=== PATIENT | female | born 1975 | race Hispanic/Latino ===

== ENCOUNTER 2018-01-23 22:20 | Emergency (ER) | payer BC, MEDICAID, OTHER ==
[2018-01-23 22:21] VITALS: BMI 26.6
[2018-01-23 22:51] VITALS: O2SAT 100
--- NOTE | 2018-01-23 23:23 | ED PDOC ---
Arrival/HPI <Earle Stein - Last Filed: 01/24/18 00:58> - General Historian: Patient - History of Present Illness Time/Duration: < week Symptom Onset: Sudden Symptom Course: Worsening Quality: Aching, Pressure Severity Level: 3 Activities at Onset: Rest, Eating Context: Home <Karime Vann - Last Filed: 01/24/18 02:26> - General Chief Complaint: Abdominal Pain Time Seen by Provider: 01/23/18 23:12 - History of Present Illness Narrative History of Present Illness (Text): 01/23/18 23:18 Pt is a 42 yr old female with a history of anxiety, who present to the ED for fever and vomiting x 5 days. Pt states she started to feel sick after eating bad sour cream on Wednesday and has also been eating a lot of pre-made salads from [employer]. Pt says that she vomited 8 times on and Wednesday and has vomited little amounts since, reports 30 minutes before arrival. Pt has chest pain and shortness of breath associate but denies diarrhea or any other complaints. 01/23/18 23:23 (Karime Vann) Past Medical History - Provider Review Nursing Documentation Reviewed: Yes - Travel History Have you recently traveled outside [place] w/in the past 3 mons?: No - Infectious Disease Hx of Infectious Diseases: None - Cardiac Hx Cardiac Disorders: Yes Hx Hypertension: Yes - Psychiatric Hx Anxiety: Yes Hx Substance Use: No - Surgical History Hx Section: Yes - Anesthesia Hx Anesthesia: No <Karime Vann - Last Filed: 01/24/18 02:26> Family/Social History - Physician Review Nursing Documentation Reviewed: Yes Family/Social History: Unknown Family HX Smoking Status: Never Smoked Hx Alcohol Use: Yes Frequency of alcohol use: Socially Hx Substance Use: No <Karime Vann - Last Filed: 01/24/18 02:26> Allergies/Home Meds <Earle Stein - Last Filed: 01/24/18 00:58> <Karime Vann - Last Filed: 01/24/18 02:26> Allergies/Adverse Reactions: Allergies metoclopramide HCl [From Reglan] Allergy (Verified 03/28/16 23:57) RASH Review of Systems - Review of Systems Constitutional: Normal, Fatigue, Fevers Eyes: Normal ENT: Normal Respiratory: SOB. absent: Cough, Sputum Cardiovascular: Chest Pain Gastrointestinal: Normal, Abdominal Pain, Nausea, Vomiting, Appetite Changes. absent: Stool Changes, Hematochezia, Hematemesis Genitourinary Female: Normal Musculoskeletal: Normal Skin: Normal Neurological: Normal Endocrine: Normal Hemo/Lymphatic: Normal Psychiatric: Normal <Karime Vann - Last Filed: 01/24/18 02:26> Physical Exam Vital Signs Reviewed: Yes Temperature: Afebrile Blood Pressure: Normal Pulse: Regular Respiratory Rate: Normal Appearance: Positive for: Well-Appearing, Non-Toxic, Comfortable Pain Distress: Mild Mental Status: Positive for: Alert and Oriented X 3 - Systems Exam Head: Present: Atraumatic, Normocephalic Pupils: Present: PERRL Extroacular Muscles: Present: EOMI Conjunctiva: Present: Normal Mouth: Present: Moist Mucous Membranes Pharnyx: Present: Normal Neck: Present: Normal Range of Motion Respiratory/Chest: Present: Clear to Auscultation, Good Air Exchange. No: Respiratory Distress, Accessory Muscle Use Cardiovascular: Present: Regular Rate and Rhythm, Normal S1, S2. No: Murmurs Abdomen: Present: Normal Bowel Sounds. No: Tenderness, Distention, Peritoneal Signs, Rebound, Guarding, McBurney's Point Tender, Rovsing's Sign Present Back: Present: Normal Inspection. No: CVA Tenderness Upper Extremity: Present: Normal Inspection. No: Cyanosis, Edema Lower Extremity: Present: Normal Inspection. No: Edema Neurological: Present: GCS=15, CN II-XII Intact, Speech Normal Skin: Present: Warm, Dry, Normal Color. No: Rashes Psychiatric: Present: Alert, Oriented x 3, Normal Insight, Normal Concentration <Karime Vann - Last Filed: 01/24/18 02:26> Vital Signs Temp Pulse Resp BP Pulse Ox 01/24/18 01:56 98.3 F 72 17 165/101 H 100 01/24/18 01:22 98.3 F 81 18 165/110 H 100 01/23/18 22:50 97.6 F 80 17 136/97 H 100 Medical Decision Making <Earle Stein - Last Filed: 01/24/18 00:58> - EKG Interpretation Interpreted by ED Physician: Yes (NSR with a rate of 98) <Karime Vann - Last Filed: 01/24/18 02:26> ED Course and Treatment: 01/23/18 23:24 Impression Pt is a 42 yr old female with a history of anxiety, who present to the ER for fever and vomiting x 5 days. On exam, no tenderness to the abdomen on palpation, good BS, lungs ctab and no r ,m,r on heart auscultation Pt appears well hydrated but eyes are slightly injected Working Dx: viral or bacterial gastroenteritis, Urinary infection Plan Labs Zofran Assess and dispo Progress note 01/23/18 23:45 EKG: NSR with a rate of 98 01/24/18 00:45 Pt feeling better after receiving zofran Still has 'heartburn'; Pepcid 20mg STAT Cipro and Flagyl dose given Rx for Cipro 250mg BID x 5 dys Informed of safe medication use and SEs F/U with PMD this week; return to ED if fever greater than 103F and intractable vomiting 01/24/18 00:50 01/24/18 01:40 Pt continues to have chest pain and complains of hot flashes and chills although no fever UDS sent Strongly encouraged pt to see her PMD tomorrow for on-going care and management of HTN 01/24/18 02:21 (Karime Vann) - Lab Interpretations Lab Results: 01/23/18 23:32 01/23/18 23:32 Lab Results 01/24/18 01:45: Urine Opiates Screen Pending, Urine Methadone Screen Negative, Ur Barbiturates Screen Pending, Ur Phencyclidine Scrn Pending, Ur Amphetamines Screen Pending, U Benzodiazepines Scrn Pending, U Oth Cocaine Metabols Pending, U Cannabinoids Screen Pending 01/23/18 23:32: Sodium 138, Potassium 3.8, Chloride 99, Carbon Dioxide 23, Anion Gap 20, BUN 11, Creatinine 0.7, Est GFR ( Amer) > 60, Est GFR (Non- Af Amer) > 60, Random Glucose 98, Calcium 9.7, Total Bilirubin 0.7, AST 86 H, ALT 55, Alkaline Phosphatase 89, Total Protein 8.1, Albumin 4.8, Globulin 3.3, Albumin/Globulin Ratio 1.5 01/23/18 23:32: Urine Color Straw, Urine Appearance Clear, Urine pH 6.0, Ur Specific Ora <= 1.005, Urine Protein Negative, Urine Glucose (UA) Negative, Urine Ketones Negative, Urine Blood Negative, Urine Nitrate Negative, Urine Bilirubin Negative, Urine Urobilinogen 0.2, Ur Leukocyte Esterase Negative 01/23/18 23:32: WBC 11.9 H, RBC 4.49, Hgb 14.9, Hct 42.2, MCV 94.0, MCH 33.2, MCHC 35.3, RDW 13.0, Plt Count 313, MPV 9.6, Gran % 76.3 H, Lymph % (Auto) 16.4 L, [place] % (Auto) 6.7 H, Eos % (Auto) 0.3 L, Baso % (Auto) 0.3, Gran # 9.05 H, Lymph # (Auto) 1.9, [place] # (Auto) 0.8 H, Eos # (Auto) 0.0, Baso # (Auto) 0.03 - Medication Orders Current Medication Orders: Discontinued Medications Ciprofloxacin (Cipro) 250 mg PO STAT STA PRN Reason: Protocol Stop: 01/24/18 01:04 Last Admin: 01/24/18 01:22 Dose: 250 mg Famotidine (Pepcid) 20 mg PO STAT STA Stop: 01/24/18 00:45 Famotidine (Pepcid) 20 mg IVP STAT STA Stop: 01/24/18 01:00 Last Admin: 01/24/18 01:22 Dose: 20 mg IVP Administration Document 01/24/18 01:22 IT (Rec: 01/24/18 01:22 IT [id number]) Charges for Administration # of IVP Administrations 1 Metronidazole (Flagyl) 500 mg PO STAT STA PRN Reason: Protocol Stop: 01/24/18 01:08 Last Admin: 01/24/18 01:22 Dose: 500 mg Ondansetron HCl (Zofran Tab) 4 mg PO STAT STA Stop: 01/23/18 23:14 Last Admin: 01/24/18 00:09 Dose: 4 mg - PA / DENTAL DETAIL REPRESENTATIVE / Resident Statement MD/DO has reviewed & agrees with the documentation as recorded. <Earle Stein - Last Filed: 01/24/18 00:58> Disposition/Present on Arrival <Earle Stein - Last Filed: 01/24/18 00:58> - Present on Arrival Any Indicators Present on Arrival: Yes History of DVT/PE: No History of Uncontrolled Diabetes: No Urinary Catheter: No History of Decub. Ulcer: No History Surgical Site Infection Following: None - Disposition Have Diagnosis and Disposition been Completed?: Yes Disposition Time: 00:49 Patient Plan: Discharge <Karime Vann - Last Filed: 01/24/18 02:26> - Disposition Diagnosis: Gastroenteritis Disposition: HOME/ ROUTINE Patient Problems: Current Active Problems Problem Status Onset Gastroenteritis Acute Condition: STABLE Discharge Instructions (ExitCare): Gastroenteritis (ED) Additional Instructions: Dear Betzy, Thank you letting us take care of your today. Take the medications as directed; drink plenty of fluids and get rest; eat a bland diet Please follow up with your doctor this week; return to ED if fever greater than 103F and intractable vomiting Please take the Cipro medication with food to avoid stomach irritation All the best, YENNIFER Vann Prescriptions: Ciprofloxacin HCl [Cipro] 250 mg PO BID 5 Days #10 tablet Famotidine [Pepcid] 20 mg PO Q8 5 Days #15 tab Ondansetron [Zofran] 4 mg PO Q8H #15 tab Forms: [facility] (Japanese), WORK NOTE
[2018-01-23 23:53] LABS: ALB/GLOB RATIO 1.5 (1.1-1.8); ALBUMIN 4.8 g/dL (3.0-4.8); CALCIUM 9.7 mg/dL (8.4-10.5); GFR AFRICAN-AMERICAN > 60; GFR NON-AFRICAN AMERICAN > 60
[2018-01-24 00:26] LABS: BASO # 0.03 K/mm3 (0.0-2.0); BASO % 0.3 % (0.0-3.0); EOS % 0.3 % (1.5-5.0); GRAN # 9.05 (1.4-6.5); GRAN % 76.3 % (50.0-68.0); HEMOGLOBIN 14.9 g/dL (12.0-16.0); LYMPH # 1.9 (1.2-3.4); LYMPH % 16.4 % (22.0-35.0); MEAN CORPUSCULAR HEMOGLOBIN 33.2 pg (25.0-35.0); MEAN CORPUSCULAR HGB CONC 35.3 g/dl (31.0-37.0); MEAN PLATELET VOLUME 9.6 fl (7.0-11.0); MONO # 0.8 (0.1-0.6); MONO % 6.7 % (1.0-6.0); RBC 4.49 10^6/uL (3.5-6.1); WHITE BLOOD COUNT 11.9 10^3/ul (4.5-11.0)
[2018-01-24 00:27] LABS: ALT/SGPT 55 U/L (7-56); AST/SGOT 86 U/L (14-36); BLOOD UREA NITROGEN 11 mg/dL (7-21)
[2018-01-24 00:28] LABS: URINE BILIRUBIN NEGATIVE (NEGATIVE); URINE BLOOD NEGATIVE (NEGATIVE); URINE GLUCOSE (UA) NEGATIVE (NEGATIVE); URINE LEUKOCYTE ESTERASE NEGATIVE Leu/uL (NEGATIVE); URINE PROTEIN NEGATIVE mg/dL (<30 mg/dL); URINE UROBILINOGEN 0.2 E.U./dL (<1 E.U./dL)
[2018-01-24 00:31] LABS: URINE APPEARANCE CLEAR (CLEAR); URINE COLOR STRAW (YELLOW)
[2018-01-24 01:29] VITALS: TEMP 98.3
[2018-01-24 01:56] VITALS: BP 165/101; PULSE 72; RESP 17
[2018-01-24 02:25] LABS: BARBITURATES, UR NEGATIVE (NEGATIVE); BENZODIAZEPINES, UR POSITIVE (NEGATIVE); OPIATES, UR NEGATIVE (NEGATIVE); PHENCYCLIDINE, UR NEGATIVE (NEGATIVE)
--- NOTE | 2018-01-24 22:39 | CARD ---
APPROVED REPORT EKG Measurement Heart [id number] <Conclusion> Normal sinus rhythm with sinus arrhythmia Normal ECG
== END 2018-01-24 01:56 | disposition home or self-care (01) ==
LOC: ED 22:20
DX: K52.9 Noninfective gastroenteritis and colitis, unspecified (principal); I10 Essential (primary) hypertension; F41.9 Anxiety disorder, unspecified